=== PATIENT | male | born 1945 | race Caucasian/White ===

== ENCOUNTER 2019-12-30 14:50 | Observation (INO) | payer MEDICARE, OTHER ==
--- NOTE | 2019-12-30 15:10 | ED ---
Shortness of Breath - HPI Summary HPI Summary: Patient is a 74 year-old male presenting to [facility] with a chief complaint of shortness of breath and productive cough worsening over the last 10 days. He reports that he was [facility] with negative results. However, he is feeling more dyspneic now, worse with exertion. This is his first medical visit for these symptoms. He denies any fevers, chills, sweats, chest pain/tightness/pressure, erythema of eyes, abdominal pain, nausea/vomiting, dysuria, hematuria, myalgia, edema, rash, or dizziness. He endorses slightly decreased appetite. Patient noted to be tachycardic in the ED. He states he took inhalation Primatene mist this morning , which he is unsure why he took it but thought it would help him. Past medical history includes CHF, hypertension, aortic valve replacement, BPH. Current occasional smoker, no EtOH, no substance use. Medications reviewed. Allergies noted. - History of Current Complaint Chief Complaint: EDShortnessOfBreath Time Seen by Provider: 12/30/19 14:54 Hx Obtained From: Patient Onset/Duration: Gradual Onset, Lasting Days - 10, Still Present Current Severity: Mild Dyspnea At: Other - rest but worse with exertion Aggravating Factors: Other - exertion Alleviating Factors: Nothing Associated Signs & Symptoms: Cough (Productive) - Risk Factors Pulmonary Embolism: Smoking Cardiac: Smoking, Hypertension - Allergy/Home Medications Allergies/Adverse Reactions: Allergies Allergy/AdvReac Type Severity Reaction Status Date / Time Penicillins Allergy Hives Verified 12/30/19 15:19 Home Medications: Home Medications Aspirin EC TAB* [Ecotrin EC Low Dose 81 MG*] 81 mg PO DAILY 08/17/13 [History Confirmed 12/30/19] EPINEPHrine [Primatene Mist] 11.7 gm INH Q6HR PRN 12/30/19 [History Confirmed ] Multivitamin [Multiple Vitamins] 1 tab PO DAILY 12/30/19 [History Confirmed ] PMH/Surg Hx/FS Hx/Imm Hx Endocrine/Hematology History: Denies: Hx Diabetes Cardiovascular History: Reports: Hx Congestive Heart Failure, Hx Hypertension, Other Cardiovascular Problems/Disorders - aortic valve replacement History: Reports: Hx Benign Prostatic Hyperplasia - Surgical History Surgical History: Yes Surgery Procedure, Year, and Place: HEART VALVE REPLACEMENT 2002 Infectious Disease History: No Infectious Disease History: Denies: Traveled Outside the [place] in Last 30 Days - Family History Known Family History: Positive: Hypertension - Social History Alcohol Use: None Hx Substance Use: No Substance Use Type: Reports: None Hx Tobacco Use: Yes Smoking Status (MU): Current Some Day Smoker Review of Systems Negative: Fever, Chills, Skin Diaphoresis Negative: Erythema Negative: Sore Throat Negative: Chest Pain Positive: Shortness Of Breath, Cough - productive Positive: Other - decreased appetite. Negative: Abdominal Pain, Vomiting, Nausea Negative: dysuria, hematuria Negative: Myalgia Negative: Rash Neurological/Mental Status: Other - Negative: dizziness All Other Systems Reviewed And Are Negative: Yes Physical Exam - Summary Physical Exam Summary: Constitutional: Well-developed, Well-nourished, Alert. (-) Distressed Skin: Warm, Dry HENT: Normocephalic; Atraumatic; Dry mucous membranes Eyes: Conjunctiva normal Neck: Musculoskeletal ROM normal neck. (-) JVD, (-) Stridor, (-) Tracheal deviation Cardio: Irregular rate with PVCs between 115-120 BPM, Heart sounds normal; Intact distal pulses; The pedal pulses are 2+ and symmetric. Radial pulses are 2 + and symmetric. (-) Murmur Pulmonary/Chest wall: Effort normal. Crackles in the left lung base, (-) Respiratory distress, (-) Wheezes, (-) Rales Abd: Soft, (-) tenderness, (-) Distension, (-) Guarding, (-) Rebound Musculoskeletal: (-) Edema Lymph: (-) Cervical adenopathy Neuro: Alert, Oriented x3 Psych: Mood and affect Normal Triage Information Reviewed: Yes Vital Signs On Initial Exam: Initial Vitals Temp Pulse Resp BP Pulse Ox 98.1 F 112 20 149/96 97 12/30/19 14:57 12/30/19 14:57 12/30/19 14:57 12/30/19 14:57 12/30/19 14:57 Vital Signs Reviewed: Yes Procedures - Sedation Patient Received Moderate/Deep Sedation with Procedure: No Diagnostics - Vital Signs Vital Signs Temp Pulse Resp BP Pulse Ox 12/30/19 14:57 98.1 F 112 20 149/96 97 - Laboratory Result Diagrams: 12/30/19 15:15 12/30/19 15:15 Lab Statement: Any lab studies that have been ordered have been reviewed, and results considered in the medical decision making process. - Radiology CXR Radiology Interpretation Completed By: Radiologist Summary of Radiographic Findings: Impression: Nonspecific chest x-ray findings could be seen in the setting of pulmonary edema/vascular congestion or possibly in the setting of viral pneumonia. Dr. Restrepo has reviewed this report. Re-Evaluation - Re-Evaluation First Eval Re-Evaluation Time: 17:30 Comment: States he sleeps on two pillows at night but has worsening shortness of breath with lying flat. Patient agreeable with admission plan. Course/Dx - Course Course Of Treatment: 74 year-old male who is current occasional smoker with CHF presenting with 10 days of shortness of breath and productive cough worse with exertion. Denies fevers, chills, diaphoresis, chest pain/tightness/pressure. Endorses slightly decreased appetite. Tachycardic on monitor; took inhalation Primatene mist this morning becuase he thought it would make him feel better. Tested negative for COVID-19 on 12/24/2019 at [facility]. History includes hypertension, aortic valve replacement, BPH. Physical exam reveals irregular heart rate with PVCs between 115-120 BPM. Crackles in the left lung base. Dry mucous membranes. Patient placed on droplet/contact precautions as PUI. IV access obtained. Patient received fluids. Blood work significant for troponin 0.03, BNP >1300, platelets 521, absolute neutrophils 8.7, INR 1.22, carbon dioxide 21, creatinine 1.21. Cultures sent. Influenza A and B are negative. CXR reveals nonspecific findings in the setting of pulmonary edema/vascular congestion or possibly in the setting of pneumonia. No change in symptoms since onset. Discussed case with Dr. Melgar from the hospitalist services, and she accepts for admission. Defer decision to further test for COVID19 to the hospitalist. Patient taken off precautions. All results discussed with patient. Patient understands and agrees with plan for admission. - Diagnoses Provider Diagnoses: CHF exacerbation - Physician Notifications Discussed Care of Patient With: Janet Melgar - hospitalist Time Discussed With Above Provider: 17:50 Instructed by Provider To: Admit As Observation - I discussed the patient's case with Dr. Melgar, and she accepts the patient for admission. - Critical Care Time Critical Care Time: 30-74 min - 35 MINUTES Discharge ED - Sign-Out/Discharge Documenting (check all that apply): Patient Departure - Patient accepted for admission by Dr. Melgar. - Discharge Plan Condition: Stable Disposition: ADMITTED TO [facility] - Attestation Statements Document Initiated by Scribe: Yes Documenting Scribe: Milagros Browne Provider For Whom Scribe is Documenting (Include Credential): Eusebio Restrepo MD Scribe Attestation: IMilagros, scribed for Eusebio Restrepo MD on 12/30/19 at 2020. Status of Scribe Document: Ready
[2019-12-30] MEDS ORDERED: NS 0.9% 1000 ML** 1,000 ML IV ONE (15:17)
[2019-12-30 16:08] LABS: Hematocrit 41 % (42-52); Hemoglobin 14.1 g/dL (14.0-18.0); Mean Corpuscular HGB Conc 34 g/dL (31-36); Mean Corpuscular Hemoglobin 32 pg (27-31); Mean Corpuscular Volume 93 fL (80-94); Mean Platelet Volume 10.2 fL (7.4-10.4); Platelet Count 521 10^3/uL (150-450); Red Blood Count 4.42 10^6 /uL (4.18-5.48); Red Cell Distribution Width 16 % (10-15); White Blood Count 10.6 10^3/uL (3.5-10.8)
[2019-12-30 16:11] LABS: ABS Basophils 0.1 10^3/ul (0-0.2); ABS Eosinophils 0.1 10^3/ul (0-0.6); ABS Lymphocytes 1.1 10^3/ul (1.0-4.8); ABS Monocytes 0.6 10^3/ul (0-0.8); ABS Neutrophils 8.7 10^3/ul (1.5-7.7); Eosinophil % 0.8 %; Lymphocyte % 10.3 %; Nucleated Red Blood Cells % 0.1
[2019-12-30 16:14] LABS: Activated Partial Thrombo Time 37.5 seconds (26.0-38.0); INR 1.22 (0.82-1.09)
[2019-12-30 16:20] LABS: Influenza A Molecular Negative (Negative); Influenza B Molecular Negative (Negative)
[2019-12-30 16:29] LABS: ALT 32 U/L (7-52); AST 30 U/L (13-39); Albumin/Globulin Ratio 1.5 (1-3); Alkaline Phosphatase 51 U/L (34-104); Anion Gap 11 mmol/L (2-11); Blood Urea Nitrogen 17 mg/dL (6-24); C Reactive Protein 3.11 mg/L (<8.01); CO2 Carbon Dioxide 21 mmol/L (22-32); Calcium 9.5 mg/dL (8.6-10.3); Chloride 109 mmol/L (101-111); EGFR African American 70.5 (>60); EGFR Non-African American 58.3 (>60); Globulin 2.7 g/dL (2-4); Glucose 111 mg/dL (70-100); Potassium 3.8 mmol/L (3.5-5.0); Sodium 141 mmol/L (135-145); Total Protein 6.7 g/dL (6.4-8.9)
[2019-12-30 16:43] LABS: Troponin I 0.03 ng/mL (<0.03)
[2019-12-30] MEDS ORDERED: Furosemide IV* 10 MG/ML VIAL (40 MG) IV ONE (18:50)
[2019-12-30] MEDS ORDERED: Acetaminophen TAB* 325 MG PO PRN (19:03)
--- NOTE | 2019-12-30 19:53 | HP ---
CC: Dr. Moreno; Dr. Rogers * HISTORY AND PHYSICAL: DATE OF ADMISSION: 12/30/19 PRIMARY CARE PROVIDER: Dr. Rogers, although the patient has not seen Dr. Rogers yet. He used to see Dr. Moreno; the last time patient saw Dr. Moreno was "many years ago." CHIEF COMPLAINT: Shortness of breath. HISTORY OF PRESENT ILLNESS: Clay Dukes is a 74-year-old male who, approximately 15 years ago, had Bovine aortic valve replaced and since then was lost to follow up with Cardiology. He really does not see doctors and said that he was healthy most of his life. He noted for the past week he has had paroxysmal nocturnal dyspnea, shortness of breath, especially with exertion and coughing yellowish white sputum. In fact he was seen at a [facility] on and he tested negative. He came into the ED today with complaints of continuation of shortness of breath and he was noted to have elevated brain natriuretic peptide of over 1300, troponin 0.03, creatinine of 1.21. His chest x-ray showed vascular congestion. He likely has congestive heart failure for which he is going to be placed on overnight observation. PAST MEDICAL HISTORY: Bovine aortic valve replacement 15 years ago. MEDICATIONS: Medications as outpatient none. ALLERGIES: PENICILLIN. FAMILY HISTORY: Father of renal failure at the age of 81 and mother also in her 80s of CHF. SOCIAL HISTORY: The patient smokes half a pack a day. He has been doing so since he turned 18. He denies any alcohol or drug use. 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 His who does not drive is at home and is his surrogate. REVIEW OF SYSTEMS: Please see history of present illness. All the remaining 12 systems were reviewed with the patient and were otherwise negative. PHYSICAL EXAMINATION GENERAL: The patient is a very pleasant 74-year-old male who is in no acute distress. The patient is alert and oriented x3. VITAL SIGNS: Blood pressure of 140/92, heart rate of 93 and regular, respiratory rate 18, oxygen saturation 95% on 2 L of oxygen nasal cannula, temperature of 98.1. HEENT: Head: Atraumatic, normocephalic. Eyes: Pupils are equal, reactive to light and accommodation. Oropharynx is clear. Mucosa moist. NECK: Supple. Positive for JVD bilaterally. RESPIRATORY: Distant breath sounds bilaterally with crackles at bilateral bases. CARDIOVASCULAR: Regular rate and rhythm. No murmur. Tachycardia. ABDOMEN: Soft, nontender. Bowel sounds present in all 4 quadrants. EXTREMITIES: There is no edema. Pulses are +2 bilaterally. There is no clubbing or cyanosis. NEUROLOGIC: Speech is clear. Cranial nerves II through XII grossly intact. Motor strength is 5/5 bilaterally. DIAGNOSTIC STUDIES/LAB DATA: Laboratory data: White blood cell count of 10.6 , hemoglobin 14.1, hematocrit 41, MCV of 93, and platelets of 521. INR was 1.22. Sodium 141, potassium 3.8, chloride 109, carbon dioxide 21, BUN 17, creatinine 1.21. Liver function is unremarkable. Troponin was 0.03. Brain natriuretic peptide was above 1300. Influenza testing was negative. Portable chest x-ray, impression: "Nonspecific chest x-ray finding could be seen in the setting of pulmonary edema, vascular congestion or possibly secondary to viral pneumonia." The patient's EKG is pending at the time of dictation. ASSESSMENT AND PLAN: 1. Clay Dukes is a 74-year-old male with a history of aortic valve replacement, who was lost to follow up and he has not been following up with his doctors. He comes in with shortness of breath, progressive dyspnea and paroxysmal nocturnal orthopnea that appears to be related to congestive heart failure. His brain natriuretic peptide was markedly elevated. His chest x-ray showed vascular congestion. He is going to receive 40 mg of IV Lasix. He is also going to be treated with IV Lasix throughout his observation status. His echocardiogram is pending. If his echocardiogram proves that the patient has an abnormality, he likely will need Cardiology consult in the morning. 2. The patient's elevation of creatinine is likely due to prerenal causes and congestive heart failure. Hopefully, it will improve with the diuretic. 3. The patient's code status is full. 4. The patient's surrogate is his . 5. For DVT prophylaxis, the patient is going to be placed on heparin subcutaneously. TIME SPENT: Approximately 65 minutes was spent on admission of this patient, more than half that time was spent [id number] with the patient during the interview and physical exam. [id number]/[facility] #: [id number] [facility]
[2019-12-30 20:42] LABS: Troponin I 0.03 ng/mL (<0.03)
[2019-12-30 20:53] LABS: Urine Appearance Clear; Urine Bilirubin Negative (Negative); Urine Blood Negative (Negative); Urine Color Amber; Urine Glucose Negative (Negative); Urine Ketones Trace (Negative); Urine Nitrite Negative (Negative); Urine Protein 1+(30 mg/dL) (Negative); Urine Specific Gravity 1.025 (1.010-1.030); Urine Urobilinogen Negative (Negative)
[2019-12-30 20:57] LABS: Urine Bacteria Absent (Absent); Urine Red Blood Cell Absent (Absent); Urine White Blood Cell 2+(11-20/hpf) (Absent)
[2019-12-30] MEDS: Heparin VIAL(*) 5000 UNITS/ML VIAL (FIVE THOUSAND) SUBCUT SCH (22:05)
[2019-12-31] MEDS: Heparin VIAL(*) 5000 UNITS/ML VIAL (FIVE THOUSAND) SUBCUT SCH ×3 (05:28→20:01)
[2019-12-31 07:07] LABS: BUN/Creatinine Ratio 13.5 (8-20); Calcium 9.4 mg/dL (8.6-10.3); EGFR African American 67.3 (>60); EGFR Non-African American 55.6 (>60); Magnesium 2.2 mg/dL (1.9-2.7); Potassium 3.8 mmol/L (3.5-5.0)
[2019-12-31] MEDS ORDERED: Aspirin EC TAB* 81 MG TAB.EC PO SCH (09:00)
[2019-12-31] MEDS ORDERED: Furosemide IV* 10 MG/ML 10 ML VIAL (100 MG) IV SCH (09:00)
--- NOTE | 2019-12-31 11:10 | ECHO ---
*[facility]* [place] [address] Fax #: [phone] Transthoracic Echocardiogram Patient: Clay Dukes : 1945 Study Date: 12/31/2019 Age: 74 Gender: M HR: 83 bpm Height: 69 in /175.3 cm BSA: 1.73 m^2 Weight: 131.7 lb /59.9 kg BMI: 19.5 kg/m^2 *Tonnage Compilation Clerk: * Alexa Aguillon [facility] *Referring Physician: * Janet Melgar *Reading Physician: * Jones Ibarra MD Indications: Congestive Heart Failure. History: Risk factors: Current tobacco use. Labs, prior tests, procedures, and surgery: Valve surgery. Aortic valve replacement with a bovine bioprosthetic valve. About 15 years ago. Conclusions Summary: - Left ventricle: Systolic function is severely reduced. The estimated ejection fraction is 10-15%. Severe diffuse hypokinesis. - Right ventricle: Systolic function is moderately to severely reduced. - Ventricular septum: There is septal flattening of the interventricular septum consistent with RV volume or pressure overload. - Mitral valve: There is mild to moderate regurgitation. - Aortic valve: There is a bioprosthetic valve. The findings are consistent with mild stenosis. - Tricuspid valve: There is mild-moderate regurgitation. - Ascending aorta: The ascending aorta is mildly dilated. - Pericardium, extracardiac: There is no significant pericardial effusion. - Pulmonary arteries: Systolic pressure is mildly to moderately increased. - Study data: No prior study is available for comparison. Study data: Transthoracic echocardiogram. Procedure: Transthoracic echocardiography was performed. Image quality was fair. Complete 2D, spectral Doppler, and color flow Doppler. Location: Bedside. Patient status: Inpatient. Patient room number: 447-01. No prior study is available for comparison. Rhythm: Normal sinus rhythm with PVC's. Findings Left ventricle: The cavity size is normal. Wall thickness is mildly increased. Systolic function is severely reduced. The estimated ejection fraction is 10-15%. Severe diffuse hypokinesis. Minor regional variations. Left ventricular diastolic function parameters are indeterminate. Right ventricle: The cavity size is moderately dilated. Systolic function is moderately to severely reduced. Systolic pressure is mildly to moderately increased. Ventricular septum: Postoperative hypokinesis of the interventricular septum is observed. There is septal flattening of the interventricular septum consistent with RV volume or pressure overload. Left atrium: The atrium is severely dilated. Right atrium: The atrium is mildly dilated. Mitral valve: The leaflets are mildly thickened. There is no evidence of stenosis. There is mild to moderate regurgitation. Aortic valve: Not well visualized. There is a bioprosthetic valve. The leaflets are mildly thickened. The findings are consistent with mild stenosis. There is trace to mild regurgitation. Tricuspid valve: The leaflets are normal thickness. There is no evidence of stenosis. There is mild-moderate regurgitation. Pulmonic valve: The leaflets are normal thickness. There is no evidence of stenosis. There is trace regurgitation. Aorta: Aortic root: The aortic root is appears normal. Ascending aorta: The ascending aorta is mildly dilated. Aortic arch: The aortic arch is appears normal. Pericardium: There is no significant pericardial effusion. Pulmonary arteries: The main pulmonary artery is normal-sized. Systolic pressure is mildly to moderately increased. Systemic veins: Inferior vena cava: The vessel is at the upper limits of normal in size. There is (< 50%) respiratory change in the IVC dimension. Measurements Left ventricle Value Ref Aortic valve Value Ref NICOLE, LAX 5.2 cm 4.2 - 5.8 Sadie diam, ED 2.0 cm ----- ESD, LAX (H) 4.7 cm 2.5 - 4.0 Peak v, S 2.8 m/sec ----- FS, LAX (L) 6 % 43 VTI, S 55.0 cm ----- PW, ED, LAX 1.0 cm 0.6 - 1.0 Accel time 97 ms ----- FS (L) 6 % Mean grad, S 21.0 mm Hg ----- Mid-wall FS 3 % Peak grad, S 32.0 mm Hg ----- PW, ED 1.0 cm 0.6 - 1.0 LVOT/AV, VTI ratio 0.2 ----- E', lat sadie, TDI (L) 5.3 cm/sec >=10.0 SUKH, VTI 0.63 cm^2 --- -- E/e', lat sadie, 19 SUKH, Vmax 0.67 cm^2 ----- TDI E', med sadie, TDI (L) 3.3 cm/sec >=7.0 Mitral valve Value Ref E/e', med sadie, 31 Peak E 1.02 m/sec ----- TDI Peak grad, D 4.2 mm Hg ----- E', avg, TDI 4.3 cm/sec E/e', avg, TDI (H) 24 <=14 Pulmonic valve Value Ref Peak v, S 0.67 m/sec ----- LVOT Value Ref Peak grad, S 2.0 mm Hg ----- Diam, S 2.00 cm Area 3.1 cm^2 Tricuspid valve Value Ref Peak opal, S 0.59 m/sec TR peak v (H) 3 m/sec <=2.8 VTI, S 11.0 cm Peak RV-RA grad, S 36 mm Hg ----- Mean grad, S 1 mm Hg SV 31 ml Aortic root Value Ref SV/bsa 18 ml/m^2 Root diam 2.5 cm <3.9 Ventricular septum Value Ref Ascending aorta Value Ref IVS, ED (H) 1.2 cm 0.6 - 1.0 AAo AP diam, S 3.6 cm ----- Right ventricle Value Ref Aortic arch Value Ref NICOLE, LAX 2.6 cm Arch diam 1.8 cm ----- NICOLE minor ax, A4C (H) 4.7 cm 1.9 - 3.5 mid Decending aorta Value Ref Pressure, S 44 mm Hg Luis Felipe peak opal 0.6 m/sec ----- Left atrium Value Ref Pulmonary artery Value Ref AP dim, ES 4.00 cm 3.00 - Pressure, S 42.0 mm Hg ----- 4.00 ML dim, A4C 5.1 cm Inferior vena cava Value Ref SI dim, A4C 6.4 cm Diam 2.0 cm ----- Vol/bsa, ES, 1-p (H) 61 ml/m^2 12 - 37 A4C Vol/bsa, ES, A/L (H) 60 ml/m^2 16 - 34 Right atrium Value Ref SI dim, ES 5.3 cm 3.4 - 5.3 ML dim, ES, A4C 4.3 cm 2.6 - 4.4 SI dim/bsa, ES, (H) 3.1 cm/m^2 1.8 - 3.0 A4C Estimated RAP 8 mm Hg Legend: (L) and (H) naveen values outside specified reference range. Prepared and electronically signed by Jones Ibarra MD 12/31/2019 11:09
[2019-12-31] MEDS ORDERED: diPHENhydraMINE PO* 25 MG PO PRN (11:47)
[2019-12-31] MEDS ORDERED: Diazepam TAB(*) 5 MG PO PRN (11:47)
[2019-12-31] MEDS: NS 0.9% 1000 ML** 1,000 ML IV SCH ×2 (12:50→19:50)
--- NOTE | 2019-12-31 13:34 | CONS ---
CC: Dr. Rogers CARDIOLOGY CONSULTATION: DATE OF CONSULT: 12/31/19 INDICATION FOR CONSULTATION: Congestive heart failure, aortic valve replacement. HISTORY OF PRESENT ILLNESS: The patient is a 74-year-old gentleman with a history of aortic valve re placement 16 years ago, likely around 2004 was admitted to the hospital with congestive heart failure . The patient states for the past week or so, he has had increasing shortness of breath. He denied any chest pain. He denied any palpitations. He denied any lightheadedness, dizziness, or syncope. T he patient just felt like he just could not get an usual wind when he was doing any kind of activity. He did not regularly exercise. He says in the summer time, he plays a lot of golf and walks the [employer] course. The patient called to his primary care physician. They thought he had a viral syndrome. He was test ed for COVID-19 which was negative. Ultimately, he came to the emergency room and was found to be in congestive heart failure. Speaking to the patient today, he actually feels well. He was admitted to the hospital yesterday wit h his congestive heart failure. He received IV Lasix with significant improvement in his symptoms. PAST MEDICAL HISTORY: Significant for aortic valve replacement 16 years ago. MEDICATIONS: No medications as an outpatient. ALLERGIES: To PENICILLIN. FAMILY HISTORY: Father due to renal failure at 81. Mother in her 80s of congestive heart failure. SOCIAL HISTORY: The patient does smoke half a pack of cigarettes a day. He denies any alcohol use. 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 He lives with his . REVIEW OF SYSTEMS: Mild positive weight gain. No fevers or chills. No changes in appetite. Other 12-point review was unremarkable. PHYSICAL EXAM: Height is 5 feet 9 inches, weight is 138 pounds, temperature 97.5, heart rate is 100, blood pressure 134/46, respiratory rate is 20, oxygen saturation 98% on room air. Sclerae anicteric . Oropharynx is pink without erythema. Carotids are 2+ with very soft bilateral bruits. JVD is norm al. Thyroid is normal. Cardiac Exam: S1, S2 with 1/6 systolic ejection murmur heard best at the ri ght upper sternal border. PMI is normal. Lungs are clear to auscultation. There are no rales on exa m. There is no dullness to percussion. Abdomen is soft, nontender, and nondistended with normoactiv e bowel sounds. Extremities shows no edema. He has 2+ pulses throughout. The patient is awake, librado rt, and oriented. He moves all 4 extremities equally. DIAGNOSTIC STUDIES/LAB DATA: Chemistries within normal limits. BUN 27, creatinine 1.26. AST and AL T are normal. Troponin level 0.03. C-reactive protein is 3. BNP is greater than 1300. CBC within normal limits. INR 1.22. EKG shows normal sinus rhythm with QRS widening and T wave flattening. No ischemic EKG changes. Chest x-ray is consistent with pulmonary edema. His echocardiogram showed severely reduced LV systolic function. Ejection fraction 10% to 15%. Diff use hypokinesis. There is mild to moderate mitral regurgitation. His bioprosthetic valve appears to be functioning normally but may have more stenosis than appreciated because of low flow from his LV d ysfunction. There is mild to moderate tricuspid regurgitation. Estimated PA systolic pressure is mo derately increased. IMPRESSION: This is a 74-year-old gentleman with a history of aortic valve replacement 16 years ago. He is admitted to the hospital with congestive heart failure. His echocardiogram today shows sever rich reduced LV systolic function. Ejection fraction of 15%. His bioprosthetic valve appears to be fu nctioning normally although it could have low flow aortic stenosis. For now, my recommendations is the patient be started on low dose beta-blockers, BETINA inhibitor. The patient has already been treated with Lasix. The patient will be scheduled for a cardiac catheterization, both a right and left heart catheterizat ion for further evaluation of his aortic valve. Further recommendations pending results of his cardiac catheterization. The risks and benefits of the cardiac catheterization were described in detail to the patient nickyi em not doing a cardiac catheterization. [id number]/[facility] #: [id number]
[2019-12-31] MEDS ORDERED: Heparin 2 UNITS/ML IVPREMIX* 2,000 ML IV ONE (14:57)
[2019-12-31] MEDS ORDERED: Iodixanol 320 (CONTRAST) 100 ML SDV ONE (14:58)
[2019-12-31] MEDS ORDERED: Lidocaine 1% INJ* 10 MG/ML 30 ML SDV ONE ×2 (14:58→14:59)
[2019-12-31] MEDS ORDERED: VERAPAMIL 2.5 MG/ML 2 ML VIAL ** 5 mg/2 ml ONE (14:59)
[2019-12-31] MEDS ORDERED: Heparin(*) 1000 UNIT/ML 10 ML VIAL CATH LAB IV ONE (14:59)
[2019-12-31] MEDS ORDERED: nitroGLYCERIN DRIP* 25,000 MCG/250 ML BTL ONE (14:59)
--- NOTE | 2019-12-31 18:37 | PN ---
Subjective Date of Service: 12/31/19 Interval History: Pt is feeling well. He really wants to go home tonight despite me explaining the reasons why he should stay. He states he will think about it. He does not make good eye contact or really elaborate on any answers. 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[employer] Furosemide (Lasix Iv*) 40 mg IV DAILY [facility] Last Admin: 12/31/19 08:39 Dose: 40 mg Heparin Sodium (Porcine) (Heparin Vial(*)) 5,000 units SUBCUT Q8HR [facility] Last Admin: 12/31/19 17:40 Dose: Not Given Sodium Chloride (Ns 0.9% 1000 Ml) 1,000 mls @ 75 mls/hr IV .per rate [facility] Stop: 12/31/19 22:00 Last Admin: 12/31/19 12:50 Dose: 75 mls/hr Lisinopril (Prinivil Tab*) 5 mg PO DAILY [facility] Vital Signs - 8 hr 12/31/19 12/31/19 12/31/19 11:47 16:48 16:50 Temperature 97.5 F Pulse Rate 100 97 85 Respiratory 20 22 21 Rate Blood Pressure 134/46 143/98 (mmHg) O2 Sat by Pulse 100 90 95 Oximetry 12/31/19 12/31/19 12/31/19 17:00 17:05 17:21 Temperature Pulse Rate 95 78 95 Respiratory 22 14 22 Rate Blood Pressure 136/89 132/100 (mmHg) O2 Sat by Pulse 98 93 95 Oximetry Oxygen Devices in Use Now: None Appearance: Elderly male sitting up on the edge of the bed, NAD Eyes: No Scleral Icterus Ears/Nose/Mouth/Throat: Mucous Membranes Moist Respiratory: Symmetrical Chest Expansion and Respiratory Effort, - - bibasilar crackles Cardiovascular: NL Sounds; No Murmurs; No JVD, RRR, No Edema Abdominal: NL Sounds; No Tenderness; No Distention Extremities: No Clubbing, Cyanosis, - Skin: No Nodules or Sclerosis Neurological: Alert and Oriented x 3 Result Diagrams: 12/30/19 15:15 12/31/19 06:26 Microbiology and Other Data: Microbiology 12/30/19 15:15 Aerobic Blood Culture - Preliminary Blood Venous No Growth Day 1 Anaerobic Blood Culture - Preliminary No Growth Day 1 Assess/Plan/Problems-Billing Mr Dukes is a 74 yo M who has a h/o bovine AVR about 15 years ago who presented to the ER with c/o progressive SOB and PND and was admitted to be treated for CHF exacerbation. - Patient Problems (1) Systolic CHF, acute Current Visit: Yes Status: Acute Code(s): I50.21 - ACUTE SYSTOLIC ( CONGESTIVE) HEART FAILURE SNOMED Code(s): 365845720 Comment: Pts echo showed a severely reduced EF of 15%. He was taken to cath today and was found to have branch CAD but more concerning is that it appears he now has significant aortic stenosis of his bioprosthetic valve. He has been started on lisinopril and coreg per Dr. Ibarra. Will change to lasix 20mg oral daily starting tomorrow. (2) Aortic stenosis Current Visit: Yes Status: Acute Code(s): I35.0 - NONRHEUMATIC AORTIC (VALVE ) STENOSIS SNOMED Code(s): 63001540 Comment: Pt to follow up with Dr. Ibarra as an outpatient. He may need to be refered for TAVR. (3) DVT prophylaxis Current Visit: Yes Status: Acute Code(s): Z29.9 - ENCOUNTER FOR PROPHYLACTIC MEASURES, UNSPECIFIED SNOMED Code(s): 712128417 Comment: SQ heparin (4) Full code status Current Visit: Yes Status: Acute Code(s): Z78.9 - OTHER SPECIFIED HEALTH STATUS SNOMED Code(s): 915433375
--- NOTE | 2019-12-31 20:44 | CATH ---
CC: Dr. Rogers * CARDIAC CATHETERIZATION: DATE OF PROCEDURE: 12/31/19 - ROOM #[id number] PROCEDURE: Cardiac catheterization including right heart catheterization, coronary angiography, and attempted left heart catheterization. INDICATION: Aortic valve replacement, congestive heart failure, cardiomyopathy. The patient is a 74-year-old gentleman with a history of aortic valve replacement in 2004, who has been lost to follow up with Cardiology. The patient was admitted to the hospital with congestive heart failure. An echocardiogram done today showed an ejection fraction of 20% and at least moderate aortic stenosis, but the aortic stenosis could be underestimated given his LV dysfunction. Cardiac catheterization was recommended. The patient was brought to the cardiac catheterization lab in a fasting state. Informed consent had been obtained prior to the procedure. All labs were reviewed. The patient was placed supine on the procedure table. His right brachial and right radial area were prepped and draped in the usual fashion. A 1% lidocaine was used for local anesthesia. The brachial vein was entered and a 5-Nicaraguan sheath was placed in the brachial vein. The patient underwent right heart catheterization using a balloon tip Crumpton-Matt catheter and multiple hemodynamic and oxygen saturation readings were taken. The radial artery was prepped and draped in the usual fashion. A 1% lidocaine was used as local anesthesia. The radial artery was entered Seldinger technique and a guidewire was placed. Over the guidewire, a 6- [place]uan hydrophilic sheath was placed. The patient underwent coronary angiography using a 6-[place]uan JR4 catheter and a 6 -[place] TIG catheter. Attempts were made to cross the aortic valve with the JR4 catheter, a Sones catheter, a J-tip wire and a Wholey wire, all of which were unsuccessful to cross the aortic valve. At the end of the procedure, all the sheaths and catheters were removed. The patient tolerated the procedure well and no complications. A total of 100 cc of Visipaque dye was used. A total of 26 minutes of fluoro time was used. FINDINGS: HEMODYNAMICS: Right atrial pressure with a mean of 12. Right ventricular pressure of 56/8 with an end-diastolic pressure of 15. Pulmonary capillary wedge pressure of 32. Pulmonary artery pressure of 56/27, mean of 39. Cardiac output by Lulú 3.4 L per minute. Cardiac output by thermodilution 3.7 L per minute. Oxygen saturation, central aortic saturation 97%. Pulmonary artery saturation 63%. CORONARY ARTERIES: 1. Right coronary artery is normal in size. It was a dominant vessel. It gave off to PDA. It did not give off any posterolateral branch. There was no evidence of stenosis. 2. Left main artery: The left main was very short and quickly bifurcated into the LAD and circumflex. There was no evidence of stenosis. 3. Left anterior descending artery: The LAD was normal in size. It gave off 1 diagonal vessel. The LAD itself was without disease. It had minimal calcification in the proximal vessel. 4. The first diagonal vessel of the LAD had an ostial 50% stenosis and a mid 50 % stenosis. 5. Left circumflex artery: The circumflex artery was normal in size. It gave off 3 obtuse marginal branches. The circumflex itself, OM2 and OM3 were without disease. 6. OM1 had a proximal 80% stenosis. IMPRESSION: 1. Moderate pulmonary hypertension. 2. Low normal cardiac output. 3. Unable to cross bioprosthetic aortic valve with multiple catheters. 4. Branch vessel disease with a 50% stenosis to the first diagonal vessel and an 80% stenosis to the proximal OM1 vessel. RECOMMENDATIONS: The patient will continue on maximum medical therapy for his cardiomyopathy. The patient was evaluated for his restenosis over the aortic valve either through transesophageal echocardiogram or dobutamine stress echo. The patient will likely need to undergo repeat aortic valve replacement with possible transcatheter aortic valve replacement. [id number]/[facility] #: [id number] KEITH
[2019-12-31] MEDS ORDERED: Carvedilol TAB* 3.125 MG PO SCH (21:00)
[2019-12-31 22:43] VITALS: BP 127/77
--- NOTE | 2020-01-01 01:06 | DS ---
CC: Dr. Rogers; Dr. Ibarra * DISCHARGE SUMMARY: DATE OF ADMISSION: DATE OF DISCHARGE: PRIMARY CARE PROVIDER: Dr. Rogers. CONSULTING MODELER: Dr. Ibarra. MY ATTENDING PHYSICIAN WHILE IN THE HOSPITAL: Dr. Iraheta * (dictated by Carlos Mei NP). PRINCIPAL DIAGNOSIS: Cardiomyopathy. SECONDARY DIAGNOSES: 1. Aortic stenosis. 2. Congestive heart failure, systolic in nature, EF 15%. 3. Coronary artery disease. DISCHARGE MEDICATIONS: New medications: 1. Carvedilol 3.125 mg p.o. twice a day. 2. Lasix 20 mg daily. 3. Lisinopril 5 mg daily. Continued medications: 1. Aspirin 81 mg daily. 2. Multivitamin one tablet daily. Discontinue: 1. Inhaled epinephrine. HISTORY OF PRESENT ILLNESS/HOSPITAL COURSE: I refer you to Antonio dictated on 12/30/19 for further details. In short, Mr. Dukes is a 74-year-old male patient who presented to the ER with complaints of shortness of breath. He had been lost to follow up with cardiology. He had an aortic valve replacement approximately 15 years ago and states that he does not generally see doctors and has been healthy most of his life. He noted in the past week that he was having nocturnal dyspnea, especially with exertion and coughing up yellow sputum. He was seen at the [facility] clinic on 12/24/19 and was tested negative. He came to the ER today with continued shortness of breath, was noted to have an elevated BNP of 1500, troponin 0.03, creatinine 1.21, and chest x-ray showed vascular congestion. He was admitted for CHF exacerbation. He was started on Lasix. Cardiology was consulted and echo was pending and it was felt that his elevated creatinine was likely prerenal. The patient was admitted, echo showed an EF of 15%. Cardiology evaluated the patient on 12/31/19, today, he was taken for cardiac catheterization. It was felt his EF was found to be 15% on echocardiogram. It appeared that his bioprosthetic valve appeared to be functioning normally. It was recommended that the patient be started on low dose beta-sandra, BETINA inhibitor, and treated with Lasix. He was scheduled for cardiac catheterization, both right and left, for further evaluation of the aortic valve and further recommendations depending on the heart catheterization. He underwent cardiac catheterization today on 12/31/19, which ultimately showed moderate pulmonary hypertension, low normal cardiac output, unable to cross bioprosthetic valve with multiple catheters, branch vessel disease with 50% stenosis in the first diagonal vessel and 80% stenosis in the proximal OM1. Recommended maximal medical therapy for cardiomyopathy. The patient will need to be evaluated for restenosis of the aortic valve through transesophageal echocardiogram or dobutamine stress echo and will likely need to undergo urgent aortic valve replacement and possible transcatheter aortic valve replacement. Unfortunately, tonight the patient states that he needs to go. I asked him what his concerns where and he states that his is unable to be cared for at home. I explained to him that we do have social work available and I explained to him if he does leave against medical advise and he were to have a catastrophic incident such as or permanent disability, he may not be able to care for his . He states that he would like to go home again to care for her and that he needed to pay some bills. I explained to him that my concerns are given the recent catheterization, we need to monitor his right wrist that he was a radial approach, that if he leaves too soon, he is at an increase risk for clot to form, possible aneurysm, loss of that limb, loss of his hand. He did repeat this back to me and understood the risk. I explained to him that we are keeping him for his new found cardiomyopathy and coronary artery disease. I explained to him that he is at risk for HI, ventricular tachycardia, ventricular fibrillation, arrhythmia which could be fatal. He did explain back to me my concerns and states that he wishes to leave against medical advice. I also explained to him that his creatinine was mildly elevated tonight and given the recent catheterization I would recommend staying, so that we can reevaluate his creatinine function in the morning. I explained to him that this could result in dialysis, possible if his kidneys were to fail suddenly, but he again stated that he wanted to leave and again was able reiterate back my concerns. I did update on-call Cardiology. I also spoke to Dr. Ibarra, who again felt it was recommended that the patient stay. I also updated the provider caring for him earlier in the day Dr. Joseph and again my recommendation along with the on-call Cardiology and Dr. Joseph was to stay, but the patient is able to reiterate to me my concerns and he also does have a plan. He states that if he has chest pain, shortness of breath, fevers, chills, redness, arm pain, cold sensation in the digits or numbness or tingling or loss of sensation into the arm or any worsening symptoms that he will come back to the hospital and call 911. I explained to him that we are starting new medications, would like to have him stay to evaluate their effectiveness, but again he is not willing to stay and again I did offer him social work, who should help care for his , but he is not interested. The patient was given discharge instructions for CHF. He was given discharge instructions for the cardiac catheterization. He was told to start a low salt diet. He was told not to use the extremity for at least 72 hours, the right upper extremity, and to follow up with Cardiology in the next couple days for a sight check and to follow up with his PCP and Cardiology this week. The patient verbalized and understood the directions and we had given him copies. He is to continue his aspirin, beta-sandra and his lisinopril. PHYSICAL EXAMINATION: On discharge, blood pressure 136/89, pulse 81, respirations 20, O2 saturation 95%, temperature 97.5. General: Gravely is a 74 -year-old male patient, appears to be well nourished, well developed, he does not appear to be in acute distress. HEENT: Head: Atraumatic. Eyes: Sclerae anicteric, not pale. Neck: Supple. Throat: Oral mucosa appears to be moist. Oropharyngeal no erythema. Heart: Sounds S1, S2. Regular rate and rhythm. No murmurs are heard. His lungs were clear to auscultation. Extremities: No peripheral edema was noted. Distal CSM checks were intact to the right hand. He had good capillary refill, warmth was felt. There was no coldness. Pulse was 2+ at right radial. Neurologically, he is awake, alert and oriented. Skin: Grossly intact. He does have the puncture site to the right wrist, which appears to be clean, dry and intact. The dressings were clean, dry, and intact. There is no erythema noted or purulent discharge. LABS ON DISCHARGE: WBC 10.6, RBC 4.42, hemoglobin 14.1, hematocrit 41, platelet count of 522. INR 1.22, PTT 37.5. Blood gas, pH 7.5, pCO2 31, pO2 78. Sodium 140, potassium 3.8, chloride 106, bicarb 26, BUN 17, creatinine 1.26. His glucose is 106. Troponin yesterday was 0.03. Urine, 1+ protein with trace ketones, trace leukocyte esterase, 2+ wbc. Serology negative for flu. Again, chest x-ray on admission showed nonspecific chest x-ray findings could be seen in the setting of pulmonary edema, vascular congestion or possibility of viral pneumonia. EKG on admission showed inverted T waves in V4, V5, V6. He had PVC noted. LVH was noted as well. He appeared to have ST elevation in V2 and V1. No previous EKG was noted for comparison. His heart rate was 103. Echocardiogram showed EF of 10% to 15%, severe diffuse hypokinesis. Systolic function on the right ventricle is moderately to severely reduced with septal flattening of the intraventricular septum consistent with RV volume or pressure overload, [id number] regurgitation, bioprosthetic valve present, findings consistent with mild stenosis. Tricuspid valve there is [id number]-[id number] regurgitation. The ascending aorta is mildly dilatated. No significant pericardial effusion. Systolic pressure up in the pulmonary artery is mildly to moderately increased. Cardiac catheterization, impression: Moderate pulmonary hypertension, low normal cardiac output, unable to cross bioprosthetic valve with multiple catheters, branch vessel occlusion with 50% stenosis in the first diagonal vessel, and 80% stenosis to the proximal OM1 vessel. DISCHARGE DISPOSITION: Against medical advice. DIET: Heart healthy diet. ACTIVITY: Again no use of the right upper extremity for 72 hours and then follow post cath instructions. ISSUES TO BE FOLLOWED UP ON DISCHARGE: 1. Cardiomyopathy. He is to follow up with Cardiology within this week. He is to continue his aspirin, beta-sandra, and BETINA inhibitor for the time being and also continue Lasix. He will be given CHF discharge instructions. He is to return to the hospital with chest pain, shortness of breath, weight gain greater than 3 pounds or any worrisome symptoms. 2. CHF, which was systolic in nature. Again continue Lasix, BETINA inhibitor, and beta-sandra, follow up with Cardiology this week, return to the hospital with weight gain greater than 3 pounds, chest pain or shortness of breath. 3. Recent cardiac catheterization. He needs to see Cardiology this week for sight check. He knows to return for coolness to the hand, loss of sensation, decreased pulse to the right radius or any other worrisome symptoms. He is aware of the risk of leaving soon. 4. CAD. Continue his aspirin and beta-sandra therapy and he needs to follow with Cardiology this week and return for any chest pain or shortness of breath or any worsening symptoms. 5. Elevated creatinine. He does appear to have some CKD. Again, he was advised to stay in the hospital to monitor his creatinine tomorrow, but he is refusing. He knows the risk of dialysis or permanent damage and he knows to stay well hydrated tonight and he could follow with his primary. I discussed the plan of care with my attending Dr. Iraheta. TIME SPENT: Time spent on this discharge was greater than 30 minutes, of which half the time was spent going over the AMA, the other half of the time was spent implementing the plan. CARLOS MEI NP [id number]/[facility] #: [id number] KEITH
[2020-01-01] MEDS ORDERED: Furosemide TAB* 20 MG PO SCH (09:00)
[2020-01-01] MEDS ORDERED: Lisinopril TAB* 5 MG PO SCH (09:00)
== END 2019-12-31 22:40 | disposition left against medical advice (07) ==
LOC: ED 14:50 → MEDTELE 19:03
PROVIDERS: ADMIT Internal Medicine; ATTEND Family Medicine
DX: I11.0 Hypertensive heart disease with heart failure (principal); I50.20 Unspecified systolic (congestive) heart failure; I42.9 Cardiomyopathy, unspecified; I35.0 Nonrheumatic aortic (valve) stenosis; N40.0 Benign prostatic hyperplasia without lower urinary tract symptoms; Z95.4 Presence of other heart-valve replacement; R06.02 Shortness of breath; Z72.0 Tobacco use; Z53.29 Procedure and treatment not carried out because of patient's decision for other reasons; Z79.82 Long term (current) use of aspirin; Z79.899 Other long term (current) drug therapy; Z88.0 Allergy status to penicillin; F17.210 Nicotine dependence, cigarettes, uncomplicated; Z20.828 Contact with and (suspected) exposure to other viral communicable diseases
CPT/HCPCS: 36415; 71045; 80048; 80053; 81003; 81015; 82803; 83605; 83735; 83880; 84484; 85025; 85610; 85730; 86140; 87040; 87086; 87635; 93005; 93306; 93456; 96360; 96372; 96374; 96376; 99284; A9270-GY; C1887; G0378; J1644; J1940

== ENCOUNTER 2020-11-21 08:14 | Inpatient (IN) ==
[2020-11-21] MEDS ORDERED: Norepinephrine 16MCG/ML IVPRE 4,000 MCG/250 ML BAG IV ONE ×2 (08:53→12:05)
[2020-11-21] MEDS ORDERED: Norepinephrine 16MCG/ML IVPRE 4,000 MCG/250 ML BAG IV SCH ×2 (09:00→14:27)
[2020-11-21 09:30] LABS: Hematocrit 42 % (42-52); Hemoglobin 13.9 g/dL (14.0-18.0); Mean Corpuscular HGB Conc 33 g/dL (31-36); Mean Corpuscular Hemoglobin 32 pg (27-31); Mean Corpuscular Volume 98 fL (80-94); Mean Platelet Volume 9.2 fL (7.4-10.4); Platelet Count 439 10^3/uL (150-450); Red Blood Count 4.29 10^6 /uL (4.18-5.48); Red Cell Distribution Width 16 % (10-15); White Blood Count 11.7 10^3/uL (3.5-10.8)
[2020-11-21 09:35] LABS: ALT 24 U/L (7-52); AST 46 U/L (13-39); Albumin 3.5 g/dL (3.2-5.2); Albumin/Globulin Ratio 1.5 (1-3); Alkaline Phosphatase 78 U/L (34-104); Anion Gap 8 mmol/L (2-11); BUN/Creatinine Ratio 15.8 (8-20); Blood Urea Nitrogen 29 mg/dL (6-24); CO2 Carbon Dioxide 25 mmol/L (22-32); Calcium 9.1 mg/dL (8.6-10.3); Chloride 111 mmol/L (101-111); EGFR African American 43.4 (>60); EGFR Non-African American 35.8 (>60); Globulin 2.4 g/dL (2-4); Glucose 86 mg/dL (70-100); Potassium 3.7 mmol/L (3.5-5.0); Sodium 144 mmol/L (135-145); Total Protein 5.9 g/dL (6.4-8.9)
[2020-11-21 09:41] LABS: Troponin I 4.01 ng/mL (<0.03)
[2020-11-21] MEDS ORDERED: Magnesium Sulfate IV 1GM/100ML 1 GM/100 ML BAG IV ONE (09:42)
[2020-11-21] MEDS ORDERED: Amiodarone 360 MG IVPREMIX 360 MG/200 ML BAG IV ONE (09:49)
[2020-11-21] MEDS ORDERED: Aspirin EC 325 mg TAB.EC PO ONE (09:49)
[2020-11-21] MEDS ORDERED: KCL 20 MEQ/100 ML IVPREMIX 20 MEQ/100 ML BAG IV ONE (09:50)
[2020-11-21] MEDS ORDERED: Heparin 5000 UNITS/ML 1 mL VIAL IV SCH (10:00)
[2020-11-21] MEDS ORDERED: Heparin DRIP 25,000 UNITS BAG 25,000 UNITS/500 ML BAG IV SCH (10:00)
[2020-11-21] MEDS ORDERED: Midazolam 5 mg/5 ml VIAL 1 mg/ml 5 ml VIAL (5 mg) ONE (10:52)
[2020-11-21] MEDS ORDERED: Heparin 1,000 UNIT/ML 10 ml (10,000 UNITS) CATHLAB/DIALYSIS ONE (10:52)
[2020-11-21] MEDS ORDERED: fentaNYL 100 mcg/2 ml 50 MCG/ML VIAL ONE (10:52)
[2020-11-21] MEDS ORDERED: VERAPAMIL 2.5 MG/ML 2 ML VIAL ** 5 mg/2 ml ONE (10:52)
[2020-11-21] MEDS ORDERED: Iodixanol 320 (CONTRAST) 100 ML SDV ONE (10:53)
[2020-11-21] MEDS ORDERED: nitroGLYCERIN DRIP 0 MCG/0 ML BTL ONE (10:53)
[2020-11-21] MEDS ORDERED: Heparin 2 UNITS/ML 1000 mls 3,000 ML IV ONE (10:53)
[2020-11-21] MEDS ORDERED: diPHENhydraMINE IV 50 MG/ML 1 ml VIAL (BENADRYL) ONE (10:53)
[2020-11-21] MEDS ORDERED: Lidocaine 1% VIAL 10 MG/ML VIAL ONE (10:53)
[2020-11-21 11:11] LABS: Activated Partial Thrombo Time 31.3 seconds (26.0-38.0); INR 1.39 (0.82-1.09)
[2020-11-21] MEDS ORDERED: EPHEDrine (Pressors) 50 MG/ML VIAL ONE (11:37)
[2020-11-21] MEDS ORDERED: fentaNYL 250 mcg/5 ml 50 MCG/ML 5 ml VIAL (250 MCG) ONE (11:37)
[2020-11-21] MEDS ORDERED: Etomidate 40 mg/20 ml (2 MG/ML) 20 ml VIAL (40 mg) ONE (11:37)
[2020-11-21] MEDS ORDERED: Propofol 10 MG/ML 20 ML BTL ONE ×2 (11:37→11:45)
[2020-11-21] MEDS ORDERED: Heparin 2 UNITS/ML 1000 mls 1,000 ML IV ONE (11:41)
[2020-11-21 11:46] LABS: Blood Urea Nitrogen 25 mg/dL (6-24); EGFR African American 55.3 (>60); EGFR Non-African American 45.7 (>60); Magnesium 1.7 mg/dL (1.9-2.7)
[2020-11-21 12:05] LABS: Troponin I 8.36 ng/mL (<0.03)
[2020-11-21] MEDS ORDERED: Phenylephrine IV 10 MG/ML 1 ml VIAL ONE (12:27)
[2020-11-21] MEDS ORDERED: NS 0.9% 1000 ml BAG 1,000 ML IV SCH (13:45)
[2020-11-21] MEDS ORDERED: Vasopressin 100 UNITS in D5W 250 ml BAG 245 ML IV SCH (15:00)
[2020-11-21] MEDS ORDERED: Amiodarone 360 MG IVPREMIX 360 MG/200 ML BAG IV SCH (15:00)
[2020-11-21] MEDS ORDERED: Atropine 0.1 MG/ML 10 ml SYR (1 mg) ONE (15:18)
[2020-11-21 15:19] LABS: Urine Appearance Cloudy; Urine Bilirubin Negative (Negative); Urine Blood 3+ (Negative); Urine Color Yellow; Urine Glucose Negative (Negative); Urine Ketones Negative (Negative); Urine Nitrite Positive (Negative); Urine Protein 1+(30 mg/dL) (Negative); Urine Specific Gravity 1.012 (1.010-1.030); Urine Urobilinogen Negative (Negative)
[2020-11-21 15:31] LABS: Urine Bacteria 1+ (Absent); Urine Red Blood Cell 3+(>10/hpf) (Absent); Urine Squamous Epithelial Cell Present (Absent); Urine Transitional Epithelial Present (Absent); Urine White Blood Cell 3+(>20/hpf) (Absent)
[2020-11-21 15:35] LABS: Hematocrit 45 % (42-52); Hemoglobin 14.3 g/dL (14.0-18.0); Mean Corpuscular HGB Conc 32 g/dL (31-36); Mean Corpuscular Hemoglobin 32 pg (27-31); Mean Corpuscular Volume 99 fL (80-94); Platelet Count 419 10^3/uL (150-450); Red Blood Count 4.51 10^6 /uL (4.18-5.48); Red Cell Distribution Width 17 % (10-15); White Blood Count 32.8 10^3/uL (3.5-10.8)
[2020-11-21 15:54] LABS: ALT 32 U/L (7-52); AST 108 U/L (13-39); Albumin 3.2 g/dL (3.2-5.2); Albumin/Globulin Ratio 1.6 (1-3); Alkaline Phosphatase 55 U/L (34-104); BUN/Creatinine Ratio 14.9 (8-20); Blood Urea Nitrogen 33 mg/dL (6-24); CO2 Carbon Dioxide 17 mmol/L (22-32); Calcium 8.3 mg/dL (8.6-10.3); EGFR African American 35.1 (>60); Glucose 111 mg/dL (70-100); Potassium 4.2 mmol/L (3.5-5.0); Sodium 142 mmol/L (135-145); Total Protein 5.2 g/dL (6.4-8.9)
[2020-11-21 15:57] LABS: Anion Gap 11 mmol/L (2-11); Chloride 114 mmol/L (101-111); Troponin I 24.76 ng/mL (<0.03)
[2020-11-21 16:17] LABS: ABS Basophils 0.1 10^3/ul (0-0.2); ABS Lymphocytes 0.3 10^3/ul (1.0-4.8); ABS Monocytes 0.7 10^3/ul (0-0.8); ABS Neutrophils 31.8 10^3/ul (1.5-7.7); Lymphocyte % 0.8 %; Nucleated Red Blood Cells % 0.1; Polychromasia 1+
[2020-11-21 16:26] LABS: Magnesium 2.2 mg/dL (1.9-2.7)
[2020-11-21 16:38] VITALS: BP 114/56
[2020-11-21] MEDS ORDERED: Propofol 10 mg/ml 100 ML BTL 100 ML IV SCH ×2 (17:00→17:20)
[2020-11-21] MEDS ORDERED: cefTRIAXone 1 gm/50 mL NS BAG 1 GM/50 ML BAG IVPB SCH (17:30)
[2020-11-21] MEDS ORDERED: Azithromycin 500 mg/250 ml NS 500 MG/250 ML BAG IVPB SCH (18:00)
[2020-11-22] MEDS ORDERED: Aspirin EC 81 mg TAB.EC (enteric coated) PO SCH (09:00)
== END 2020-11-21 18:00 | disposition short-term general hospital (02) | DRG 270 ==
LOC: ED 08:14 → ICU 11:26
PROVIDERS: ADMIT Internal Medicine; ATTEND Internal Medicine